=== PATIENT | male | born 2000 | race Caucasian/White ===

== ENCOUNTER 2024-06-20 22:03 | Emergency (ER) | payer BC, SELFPAY ==
[2024-06-20 22:46] VITALS: BP 129/85; BP 150/100; PULSE 68; PULSE 73; RESP 16; TEMP 36.7; O2SAT 98; BMI 20.3
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
--- NOTE | 2024-06-20 23:18 | MHC.CARE ---
Pt assessed by [facility] in the community and is an adult bedsearch.
[2024-06-20 23:26] LABS: MANUAL DIFF FLAG NO
[2024-06-20 23:27] LABS: Basophils Absolute Auto 0.1 X10*3/uL (0.0-0.2); Basophils Percent Auto 0.5 % (0-2); Eosinophils Absolute Auto 0.2 X10*3/uL (0.0-0.4); Eosinophils Percent Auto 1.2 % (0-4); Hematocrit 38.7 % (42.0-52.0); Hemoglobin 12.9 g/dl (14.0-18.0); Imm Gran Abs Auto 0.09 X10*3/uL (0.00-0.03); Imm Gran Pct Auto 0.7 % (0.0-0.4); Lymphocytes Absolute Auto 3.5 X10*3/uL (1.2-4.9); Lymphocytes Percent Auto 25.3 % (20-40); Mean Corpuscular HGB Conc 33.3 g/dl (31.0-36.0); Mean Corpuscular Hemoglobin 27.1 pg (27.0-33.0); Mean Corpuscular Volume 81.3 fL (80.0-98.0); Mean Platelet Volume 8.5 fL (9.4-12.4); Monocytes Absolute Auto 0.6 X10*3/uL (0.1-1.2); Monocytes Percent Auto 4.5 % (2-11); Neutrophils Absolute Auto 9.3 x10*3/uL (2.0-8.3); Neutrophils Percent Auto 67.8 % (45-73); Platelet Count 361 X10*3/uL (160-400); Red Blood Count 4.76 X10*6/uL (4.60-5.80); Red Cell Distribution Width 14.3 % (11.0-16.0); White Blood Count 13.7 X10*3/uL (4.8-10.8)
[2024-06-20 23:47] LABS: Acetaminophen LAB < 3 mcg/mL (<30); Alanine Aminotransferase 19 U/L (0-40); Albumin Level 4.2 g/dL (3.5-5.0); Alkaline Phosphatase 100 U/L (39-117); Anion Gap 15 (12-20); Aspartate Amino Transferase 19 U/L (5-37); Bilirubin Direct 0.1 mg/dL (0.0-0.5); Bilirubin Total 0.3 mg/dL (0.0-1.0); Blood Urea Nitrogen 11 mg/dL (9-16); Calcium 9.1 mg/dL (8.4-10.2); Carbon Dioxide 21 mmol/L (22-29); Chloride 111 mmol/L (96-108); Creatinine Clr Calc Pharmacy 144.2; Estimated Glomerular Filt Rate > 60; Ethanol < 10 mg/dL; Glucose Random 89 mg/dL (60-115); Potassium 3.5 mmol/L (3.3-5.1); Salicylate < 5.0 mg/dL (15-30); Sodium 143 mmol/L (135-145); Total Protein 8.3 g/dL (6.5-8.0)
[2024-06-20 23:57] VITALS: BP 122/75; PULSE 65; RESP 16; TEMP 36.6; O2SAT 97
--- NOTE | 2024-06-21 | ECG_ITS ---
Test Reason : admission requirement Blood Pressure : */* mmHG Vent. Rate : 66 BPM Atrial Rate : 66 BPM P-R Int : 136 ms QRS Dur : 84 ms QT Int : 398 ms P-R-T Axes : 79 78 72 degrees QTcB Int : 417 ms Sinus rhythm with marked sinus arrhythmia Otherwise normal ECG No previous ECGs available Referred By: Broderick Flor Electronically Signed By: JU BRITO MD
--- NOTE | 2024-06-21 02:20 | MHC.EDTECH ---
pt belongings placed in locker #6 in the pod.
[2024-06-21] MEDS: Melatonin 3 MG TABLET 6 MG PO (02:36)
[2024-06-21] MEDS: Nicotine Polacrilex 2 MG GUM BUCCAL (03:01)
--- OUTSIDE RECORDS SUMMARY | 2024-06-21 08:37 | XMS_ITS | Clinical Summary ---
Author Organization [facility] Facility Address [address] [place] [id number] Care Team Providers Care Superintendent Plant Protection Name Role Phone Unavailable Primary Care Provider Unavailabl e Allergies Active Allergy Reactions Criticality Noted Date Comments Allyl Isothiocyanate Other (see comments) 02/12 [place]-Containing Products Other (see comments) 1 Gramineae Pollens Other (see comments) 02/13/20 Latex Rash Low 01/31/2017 Molds & Smuts Other (see comments) 02/12/2021 Soy Allergy (Obsolete) Other (see comments) Medications loperamide (IMODIUM) 2 MG capsule TAKE 1 CAPSULE BY MOUTH TWO TIMES A DAY NEEDED FOR LOOSE STOOL 3 Active HYDROcodone-mario taminophen (NORCO) 5-325 MG per tablet Take 1-2 tablets by mouth 7 Active clobetasol (TEMOVATE) 0.05 % external solution Apply topically 2 Active acetaminophen (TYLENOL) 325 MG tablet TAKE 2 TABLETS BY MOUTH EVERY 6 HOURS NEEDED FOR MODERATE PAIN 3 Active Active Problems Problem Noted Date Diagnosed Date 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 10/09/2021 Partial obstruction of small bowel 10/03/2021 Ulcerative pancolitis with rectal bleeding 09/17 Systemic inflammatory response syndrome 09/18/19 Exacerbation of ulcerative colitis 06/19/2021 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 06/19/2021 Immunizations Name Administration Dates Next Due Hepatitis A 08/22/2020 Hepatitis B 09/23/2020,08/22/2020 Pfizer SARS-COV-2 11/07/2020,10/17/2020 Pneumococcal Conjugate 13-Valent 06/09/2021 Tdap 07/01/2021 Social History Tobacco Use Types Packs/Day Years Used Date Smoking Tobacco: Never Assessed Sex and Gender Information Value Date Recorded Sex Assigned at Not on file Legal Sex Male 3:01 PM EDT Gender Identity Not on file Sexual Orientation Not on file Plan of Treatment Health Maintenance Due Date Last Done Comments Hepatitis B Vaccine (1 of 3 - 19+ 3-dose series) 11/13/2018 09/23/2020, 08/22/2020 Pneumococcal Vaccine: Pediat rics (0 to 5 Years) and At-Risk Patients (6 to 64 Years) (2 of 2 - PPSV23 or PCV20) 08/04/2021 06/09/2021 Influenza Vaccine (#1) [address] [place] [address] [place] [id number]
--- OUTSIDE RECORDS SUMMARY | 2024-06-21 08:37 | XMS_ITS | Clinical Summary ---
Author Organization [facility] ity Address [address] [place] [address] Care Team Providers Care Java Developer Consultant Name Role Phone Unavailable Primary Care Provider Unavailabl e Social History Tobacco Use Types Packs/Day Years Used Date Smoking Tobacco: Never Assessed Sex and Gender Information Value Date Recorded Sex Assigned at Not on file Legal Sex Male 9:47 PM EST Gender Identity Not on file Sexual Orientation Not on file Plan of Treatment Health Maintenance Due Date Last Done Comments HPV Vaccines (1 - Male 3-dos e series) 11/13/2014 DTaP,Tdap,and Td Vaccines (1 - Tdap) 11/13/2018 Hepatitis B Vaccines (1 of 3 - 19+ 3-dose series) 11/13/2018 Depression Screening 05/18/2023 HIV Screening 05/18/2023 Hepatitis C Screening 05/18/2023 Social Influencers of Health Screening 05/18/2023 COVID-19 Vaccine ( - 2023-2 5 season) 2023 Influenza Vaccine (#1) 2023 HIB Vaccines Aged Out No longer eligi ble based on patient's age to complete this topic Hepatitis A Vaccines Aged Out No long er eligible based on patient's age to complete this topic IPV Vaccines Aged Out No longer eligi ble based on patient's age to complete this topic MMR Vaccines Aged Out No longer eligi ble based on patient's age to complete this topic Meningococcal ACWY Vaccine Aged Out N o longer eligible based on patient's age to complete this topic Meningococcal B Vacine Aged Out No lo nger eligible based on patient's age to complete this topic Pneumococcal Vaccine: Pediat rics (0 to 5 Years) and At-Risk Patients (6 to 64 Years) Aged Out No longer eligible b ased on patient's age to complete this topic RSV Immunization Patients Un donny 20 months Aged Out No longer eligible b ased on patient's age to complete this topic Varicella Vaccines Aged Out No longer eligible based on patient's age to complete this topic
[2024-06-21 11:57] LABS: Appearance Urine Clear; Color Urine Dark Yellow; Glucose Urine UA Negative (Negative); Leukocyte Esterase Urine Negative (Negative); Nitrite Urine Negative (Negative); PH 5.5 (5.0-9.0); Specific Gravity - Urine >= 1.030 (1.005-1.025); UMIC TRIGGER UA YES; Urine Blood Negative (Negative); Urine Ketones Negative (Negative); Urine Protein 30 (1+) mg/dL (Neg-Trace)
[2024-06-21 12:07] LABS: Bacteria Urine None Seen (None Seen); Hyaline Casts Urine >20 /LPF (0-2); RBC Urine 0-2 /HPF (0-2); Squamous Epithelial Cell Urine 0-2 /HPF (0-2)
[2024-06-21 12:11] LABS: Amphetamine Screen Urine Not Detected (Not Detect); Barbiturates, Urine Not Detected (Not Detect); Benzodiazepines Screen Urine Not Detected (Not Detect); Buprenorphine Scr Not Detected (Not Detect); Cannabinoid Screen Urine Not Detected (Not Detect); Cocaine Screen Urine Not Detected (Not Detect); Fentanyl, urine Not Detected (Not Detect); Methadone Screen, Urine Not Detected (Not Detect); Opiate Screen Urine Not Detected (Not Detect); Oxycodone Screen Urine Not Detected (Not Detect); Phencyclidine Screen Urine Not Detected (Not Detect)
[2024-06-21 12:44] VITALS: BP 107/76; PULSE 71; RESP 14; TEMP 36.8; O2SAT 98
[2024-06-21] MEDS: FLUoxetine HCl 20 MG CAPSULE PO (13:03)
[2024-06-21 13:08] VITALS: BP 107/76; PULSE 71; RESP 14; TEMP 36.8; O2SAT 98
== END 2024-06-21 13:09 | disposition home or self-care (01) ==
PROVIDERS: Emergency Medicine; Emergency Provider Emergency Medicine; PCP Nurse Practitioner Family
DX: F32.A Depression, unspecified (principal); R45.851 Suicidal ideations; F41.9 Anxiety disorder, unspecified
CPT/HCPCS: 36415; 80048; 80076; 80143; 80179; 80307; 81001; 85025; 93005; 99285; S9485

== ENCOUNTER → 2024-06-21 08:19 | Outpatient (BNV) | payer BC, SELFPAY | PROVIDERS: Emergency Provider Emergency Medicine; PCP Nurse Practitioner Family; Visit Provider Internal Medicine Cardiovascular Disease | DX: Z51.81 Encounter for therapeutic drug level monitoring (principal) | CPT/HCPCS: 93010 ==